=== PATIENT | male | born 1960 | race Caucasian/White ===

== ENCOUNTER 2018-02-18 08:03 | Outpatient (CLI) | payer OTHER ==
--- NOTE | 2018-02-18 09:40 | ULT ---
ABDOMINAL UTLRASOUND: DATE: 02/18/2018. HISTORY: Abdominal pain. FINDINGS: The majority of the pancreas is obscured by bowel gas. The proximal abdominal aorta is also obscured by bowel gas, but the mid and distal abdominal aorta are normal in caliber. The visualized portions of the IVC, spleen, and the bilateral kidneys demonstrate a normal sonographic appearance. The righ t kidney measures 9.9 cm in length with the left kidney measuring 10.3 cm in length. The liver demonstrates increased echogenicity suggesting diffuse fatty infiltration with a small hypo echoic area seen adjacent to the gallbladder probably related to focal area of fatty sparing. There are mobile echogenic foci with posterior shadowing seen in the gallbladder lumen consistent wit h gallbladder calculi. There is no gallbladder wall thickening or pericholecystic fluid. The common duct is not well visualized but where seen does appear mildly dilated measuring 0.7 cm in diameter. No intrahepatic biliary ductal dilatation is appreciated. IMPRESSION: 1. Fatty infiltration with probable focal area of fatty sparing adjacent to th gallbladder. 2. Cholelithiasis. 3. Mild dilatation of the common duct measuring 0.7 cm in diameter. No intrahepatic biliary ductal dilatation is visualized. The exact etiology for dilatation of the common duct is uncertain based on this exam. POS: ELKE
== END 2018-02-18 08:04 | disposition home or self-care (01) ==
LOC: BICULT 08:03
PROVIDERS: ATTEND Physician Assistant Medical
DX: R10.9 Unspecified abdominal pain (principal); R14.0 Abdominal distension (gaseous); K76.0 Fatty (change of) liver, not elsewhere classified; K80.20 Calculus of gallbladder without cholecystitis without obstruction; K83.8 Other specified diseases of biliary tract
CPT/HCPCS: 76700

== ENCOUNTER 2018-03-29 07:53 | Day surgery (SDC) | payer OTHER ==
--- NOTE | 2018-03-25 09:04 | HP ---
HISTORY OF PRESENT ILLNESS: Quinton Larson is a 58-year-old male patient followed by Dr. Jiménez and Dr. Pate. The patient recently had an EGD. Colonoscopy was normal. He has been having epigastric pain, back radiation. He has a history of achalasia. Ultrasound of the gallbladder revealed liver steatosis, fatty liver, cholelithiasis, 7 mm bile duct. Plan is for laparoscopic video cholecystectomy, cholangiograms, and core liver biopsy. Risks of infection, bleeding, visceral and biliary injury, open procedure were discussed and he consents. ALLERGIES: NONE. TOBACCO: None. ALCOHOL: Two beers a day, three shots a day. PAST SURGICAL HISTORY: In 2010, sigmoid resection for diverticulitis. PAST MEDICAL HISTORY: Diverticulosis. MEDICATIONS: Prilosec 40 mg twice a day. REVIEW OF SYSTEMS: Ten-point noncontributory. Cardiac review of systems negative. PHYSICAL EXAMINATION: VITAL SIGNS: 190 pounds, 5 feet 9 inches. 155/88, 93, 99.3 degrees. HEAD, EARS, EYES, NOSE, AND THROAT: Unremarkable. Sclerae nonicteric. SKIN: No jaundice. LUNGS: Clear to auscultation. CARDIAC: Regular rate and rhythm without murmur or gallop. ABDOMEN: Soft and nontender. No masses. EXTREMITIES: Unremarkable. ASSESSMENT AND PLAN: Fatty liver, obesity, cholelithiasis, cholecystitis. He has had several attacks over the last few months. Plan is for laparoscopic video cholecystectomy, cholangiograms, and core liver biopsy. Risks and benefits discussed. Questions answered. Job ID: [id number]
[2018-03-26 14:55] VITALS: BMI 28.0
[2018-03-29 08:39] LABS: #Basophils 0.1 thou/uL (0.0-0.2); #Eosinphils 0.5 thou/uL (0.0-0.7); #Lymphocytes 1.5 thou/uL (1.20-3.40); #Neutrophils 6.3 thou/uL (1.40-6.50); %Basophils 0.9 % (0.0-1.0); %Eosinophils 4.9 % (0.0-10.0); %Lymphocytes 16.4 % (21.0-51.0); %Monocytes 10.4 % (0.0-10.0); %Neutrophils 67.5 % (42.0-75.0); Hemoglobin 16.3 g/dL (14.0-18.0); Mean Corpuscular HGB CONC 34.5 g/dL (32.0-36.0); Mean Corpuscular Hemoglobin 34.5 pg (27.0-31.0); Mean Platelet Volume 6.8 fL (7.4-10.4); Platelet Count 235 thou/uL (130-400); Red Blood Cell (RBC) Count 4.74 mill/uL (4.70-6.10); White Blood Cell (WBC) Count 9.4 thou/uL (4.8-10.8)
[2018-03-29] MEDS ORDERED: Ketorolac Tromethamine 30 MG/ML VIAL ONE (08:51)
[2018-03-29] MEDS ORDERED: Midazolam HCl 2 mg/2 ml Vial ONE (08:51)
[2018-03-29] MEDS ORDERED: CEFAZOLIN 2 GM/50 ML BAG ONE (08:55)
[2018-03-29 08:57] LABS: ALT (SGPT) 54 U/L (8-55); AST (SGOT) 50 U/L (5-34); Albumin 4.2 g/dL (3.5-5.0); Alkaline Phosphatase 84 U/L (40-150); Anion Gap 14 mmol/L (10-20); BUN (Urea Nitrogen) 15 mg/dL (8.4-25.7); Bilirubin, Total 1.6 mg/dL (0.2-1.2); Calc. Creatinine Clearance 100 mL/min (70-130); Calcium 8.9 mg/dL (7.8-10.44); Carbon Dioxide 24 mmol/L (22-29); Chloride 103 mmol/L (98-107); Estimated GFR-MDRD 78; Glucose 102 mg/dL (70-105); Protein, Total 7.2 g/dL (6.0-8.3); Sodium 137 mmol/L (136-145)
[2018-03-29] MEDS ORDERED: Bupivacaine HCl 0.5%/Epinephrine 1:200,000/PF 30 ml Vial ONE (10:17)
[2018-03-29] MEDS ORDERED: Iothalamate Meglumine 60% 50 ML VIAL FS ONE (10:17)
[2018-03-29] MEDS ORDERED: HYDROmorphone 2 MG/ML VIAL ONE (10:20)
[2018-03-29] MEDS ORDERED: Fentanyl 100 MCG/2 ML VIAL ONE ×2 (10:20→11:58)
[2018-03-29] MEDS ORDERED: hydrALAZINE 20 MG/ML VIAL ONE (11:58)
--- NOTE | 2018-03-29 12:07 | EKG ---
Test Reason : PREOP Blood Pressure : / mmHG Vent. Rate : 082 BPM Atrial Rate : 082 BPM P-R Int : 144 ms QRS Dur : 084 ms QT Int : 372 ms P-R-T Axes : 002 093 050 degrees QTc Int : 434 ms Normal sinus rhythm Rightward axis /Borderline Borderline ECG When compared with ECG of 30-JUL-2010 21:04, No significant change was found Confirmed by KINGA SCHULER ([id number]) on 03/29/2018 12:07:02 PM Referred By: KISHA Confirmed By:KINGA SCHULER
--- NOTE | 2018-03-29 13:12 | RAD ---
OPERATIVE CHOLANGIOGRAM: A single fluoroscopic image taken during the OR during operative angiogram procedure is presented. Indications: Intraoperative imaging to assess the bowel ducts. FINDINGS/IMPRESSION: Single image shows opacification of the common bile duct and hepatic radicles. Cystic duct is also op acified. There is no filling defect identified. POS: ELKE
[2018-03-29] MEDS ORDERED: HYDROcodone/Acetaminophen 5/325 mg Tablet ONE (13:50)
--- NOTE | 2018-03-29 17:08 | RAD ---
UPRIGHT PORTABLE CHEST ONE VIEW: HISTORY: A 58-year-old male with a history of postop pain. FINDINGS: There is a large retrocardiac and central mediastinal double density. This could represent a large h iatal hernia. The patient has had a very markedly dilated distal esophagus, in association with cristobal lasia in the past, and this could just represent a very markedly dilated, tortuous esophagus. At the level of the tracheal bifurcation, there is evidence for a dilated esophagus at this level, with geoff e material within the esophagus below this, forming an air/soft tissue interface. There appears to b e much more severe dilatation of the esophagus, when compared to a prior clothes shaker view from a barium swa llow, dated 04/05/2014. There are some minimal parenchymal changes in the lung bases, having more th e appearance of some subsegmental atelectasis. IMPRESSION: 1. Very large retrocardiac density, evidence for a hiatal hernia/very severely dilated, tortuous dis nu esophagus, probably secondary to associated achalasia, with a dilated upper thoracic esophagus, w ith an air soft tissue density, probably representing some retained food or secretions within the dil ated esophagus. This has become much more dilated when compared to a prior 04/05/2014 plain film of the chest. 2. Minimal parenchymal changes in both lung bases, nonspecific. These changes could represent minim al pneumonia or pneumonitis and/or subsegmental atelectasis. Consider short-term followup, to includ e upright PA and lateral chest, whenever the patient can undergo that study. POS: ISELA
--- NOTE | 2018-03-29 23:17 | OP ---
DATE OF PROCEDURE: 03/29/2018 PREOPERATIVE DIAGNOSES: Cholecystitis, cholelithiasis, fatty liver, adhesions from prior surgery (sigmoid colon resection, infraumbilical incision). POSTOPERATIVE DIAGNOSES: Cholecystitis, cholelithiasis, fatty liver, adhesions from prior surgery (sigmoid colon resection, infraumbilical incision) noting adhesions in small bowel to the periumbilical areas. ANESTHESIA: General with local of 0.5% Marcaine with epinephrine, 30 mL. PROCEDURES PERFORMED: Laparoscopic video cholecystectomy, laparoscopic cholangiograms, laparoscopic core liver biopsies, right lobe. DESCRIPTION OF PROCEDURE: The patient was taken to the operating room under general anesthesia, abdomen was clipped, prepared with ChloraPrep and draped in routine fashion. Local anesthetic was infiltrated in the skin and subcutaneous tissue about the operative site. Because of a prior infraumbilical incision from a colon resection, a right mid clavicular subcostal incision was made, pneumoperitoneum to 15 mmHg was obtained with a Veress needle, replaced with a 5 port, laparoscope was inserted. There were noted to be adhesions about periumbilical with small bowel plastered against the abdominal wall. A right subxiphoid incision was made, and 11 port was placed. A right lateral subcostal incision was made. Another 5 port placed. Right lower quadrant incision was made in adhesion free area and a 5 mm port placed with the laparoscope moved to this port and laparoscopic cholecystectomy was undertaken, noting a fatty liver without nodularity. Fundus of the gallbladder was grasped at cephalad. The infundibulum was grasped and reflected laterally. Cystic artery and duct dissected free. Critical view obtained. Cystic duct singly clipped on the gallbladder side, remaining cystic duct cholangiogram was obtained using fluoroscopy, injecting contrast in the biliary tree noting small caliber bile ducts without filling defects visualized in left and right hepatic ducts, common hepatic, common bile ducts, and contrast free flow into the duodenum without filling defects. Cholangiocatheter was removed. Cystic artery and duct double clipped proximally and divided. Gallbladder dissected free from liver bed obtaining good hemostasis prior to division of the final peritoneal attachments. Good hemostasis was obtained with cautery. Elaine was used. Core biopsies obtained using the core biopsy gun inserted intercostal. Two core biopsies obtained, submitted to Pathology. Good hemostasis was obtained with cautery. Irrigant and pneumoperitoneum evacuated. All instruments were removed, and all skin incisions were approximated with subdermal 4-0 Monocryl and Eola glue applied. Job ID: [id number]
== END 2018-03-29 16:30 | disposition home or self-care (01) ==
LOC: SDC 07:53
PROVIDERS: ATTEND Specialist
DX: K80.10 Calculus of gallbladder with chronic cholecystitis without obstruction (principal); K76.0 Fatty (change of) liver, not elsewhere classified; K66.0 Peritoneal adhesions (postprocedural) (postinfection)
CPT/HCPCS: 36415; 47532; 71045; 80053; 85025; 88304; 88307; 88313; 93005; 93010; 96374; J0131; J0360; J0670; J1170; J1610; J1885; J2250; J3010; J3490; Q9961

== ENCOUNTER 2018-03-31 14:51 | Outpatient (CLI) | payer OTHER ==
--- NOTE | 2018-03-31 17:02 | RAD ---
EXAM: CHEST PA AND LATERAL: 03/31/18 HISTORY: 58-year-old male with history of postop pain. COMPARISON: 03/29/18. Again noted is a very large retrocardiac mass primarily centrally and right sided as well as so me abnormal gas and mixed soft tissue density changes in the region overlying the right mediastinum. This extensive abnormal finding may be related to very severe esophageal dilatation with known histor y of achalasia in the past, although this is definitely worsened when compared to old studies back to 2013. Compared to the 03/29/18 study, there are small bilateral pleural effusions as well as some b ibasilar pulmonary parenchymal changes which have developed, evidence for developing bibasilar subseg mental atelectasis and/or pneumonitis. The mid and upper lung zones are clear. IMPRESSION: Developing small bilateral pleural effusions and bibasilar parenchymal changes showing worsening when compared to the 03/29/18 portable chest, evidence for some developing bilateral lower lobe pneumonit is and/or subsegmental atelectasis. Very prominent primarily right sided retrocardiac and right sided upper mediastinal abnormal gas and soft tissue densities which may just be related to very markedly abnormally dilated esophagus. Patient has history of achalasia and previously documented dilated esop hagus, although this is much more marked when compared to a prior [address] study[address] scan of t he chest in this regard might be considered if that remains a clinical concern. POS: ISELA
== END 2018-03-31 14:52 | disposition home or self-care (01) ==
LOC: BICRAD 14:51
PROVIDERS: ATTEND Specialist
DX: R06.00 Dyspnea, unspecified (principal); J90 Pleural effusion, not elsewhere classified; J98.4 Other disorders of lung; Z90.49 Acquired absence of other specified parts of digestive tract
CPT/HCPCS: 36415; 71046; 80053; 83690; 85025